=== PATIENT | male | born 1985 | race Caucasian/White ===

== ENCOUNTER 2017-09-03 23:44 | Observation (INO) ==
[2017-09-04] MEDS ORDERED: Haloperidol Lactate 5 MG/ML VIAL IVP ONE (02:27)
[2017-09-04] MEDS ORDERED: *HR* LORazepam 2 MG/ML VIAL IVP ONE (02:27)
--- NOTE | 2017-09-04 02:35 | Emergency Department Note ---
Disposition Clinical Impression: Finger fracture, left Qualifiers: Encounter type: initial encounter Finger: little finger Fracture type: open Phalanx: proximal Fracture alignment: displaced Qualified Code(s): S62.617B - Displaced fracture of proximal phalanx of left little finger, initial encounter for open fracture Disposition: Admitted As Inpatient Condition: Fair Upper Extremity HPI - General Chief Complaint: ED Extremity Injury, Upper Stated Complaint: "my pinky is falling off, I need sugery" Time Seen by Provider: 09/04/17 01:14 Source: patient Limitations: no limitations Nursing Notes Reviewed: Yes Vital Signs Reviewed: Yes - History of Present Illness HPI Narrative: 32-year-old male presents with the left pinky injury. Patient was smashed by heavy door in custodial on his left small finger the past Sunday (5 days ago). Patient was admitted to [facility] for hand surgery. Patient stated the surgery was postponed from to Sunday and to next Sunday (today). Patient left [facility] on Sunday. Patient came here today and requested amputation. Patient denied chills and fever. Denies pus drainage from wound. Patient is not on antibiotics. Injury Location: Left: fingers Onset (ago): day(s) (5) Other Injuries: none Handedness: left Place: other (custodial) Pain Severity: severe - Related Data Allergies Allergy/AdvReac Type Severity Reaction Status Date / Time No Known Allergies Allergy Verified 09/30/16 17:44 Constitutional: Denies: fever, chills, weakness, weight change Eyes: Denies: eye pain, eye discharge, vision change ENT ED: Denies: ear pain, throat pain, dental pain, hearing loss, epistaxis, congestion, dysphagia Cardiovascular: Denies: chest pain, palpitations, dyspnea on exertion, edema, syncope Respiratory: Denies: cough, dyspnea, wheezes, hemoptysis, stridor Gastrointestinal: Denies: abdominal pain, nausea, vomiting, diarrhea, constipation, hematemesis, melena, hematochezia Genitourinary: Denies: urgency, dysuria, frequency, hematuria Musculoskeletal: Reports: joint swelling (Left small finger swelling and pain), arthralgia. Denies: back pain, neck pain, myalgia Integumentary: Denies: rash, abrasion, lesions Neurological: Denies: headache, weakness, numbness, paresthesias, confusion, abnormal gait, vertigo Psychiatric: Denies: anxiety, depression, suicidal thoughts, homicidal thoughts , auditory hallucinations, visual hallucinations Endocrine: Denies: fatigue Hematological/Lymphatic: Denies: easy bleeding, easy bruising Allergic/Immunologic: Denies: facial swelling, urticaria Past Medical History - Past Medical History Medical history: Reports: hepatitis, thyroid disease - Social History Smoking Status: Current every day smoker Smokeless Tobacco Status: No Alcohol use: Reports: occasionally Drug use: Reports: methamphetamine Physical Exam - General Limitations: no limitations General appearance: alert, in no apparent distress - Head Head exam: atraumatic, normocephalic, normal inspection - Eye Eye exam: Present: normal appearance, PERRL, EOMI - ENT ENT exam: normal exam, normal oropharynx, mucous membranes moist - Neck Neck exam: Present: normal inspection, full ROM, trachea midline - Chest Chest inspection: Present: normal inspection, symmetric chest wall rise - Respiratory Respiratory exam: Present: normal lung sounds bilaterally - Cardiovascular Cardiovascular exam: Present: regular rate, normal rhythm, normal heart sounds - Abdominal Exam Abdominal exam: Present: soft, Non-Tender. Absent: tenderness, distention, guarding, rebound, rigidity - Expanded Upper Extremity Exam Shoulder exam: Present: normal inspection, full ROM. Absent: tenderness, swelling Arm exam: Present: normal inspection, full ROM. Absent: tenderness, swelling Elbow exam: Present: normal inspection, full ROM. Absent: tenderness, swelling Forearm/Wrist exam: Present: normal inspection, full ROM. Absent: tenderness, swelling Hand exam: Present: other (Left small finger swelling, tender to palpation, sutured laceration noted, no purulent drainage noted, capillary refill time normal in finger tip, no sensory change on finger tip) - Back Exam Back exam: Present: normal inspection, full ROM. Absent: tenderness - Neurological Exam Neurological exam: Present: alert, oriented X3 - Psychiatric Psychiatric exam: Present: normal affect, normal mood Course Vital Signs Temperature 98.8 F 09/03/17 23:49 Pulse Rate 97 09/03/17 23:49 Respiratory Rate 18 09/03/17 23:49 Blood Pressure 140/95 09/03/17 23:49 O2 Sat by Pulse Oximetry 96 09/03/17 23:49 Temperature 98.8 F 09/03/17 23:49 Pulse Rate 92 09/04/17 03:27 Respiratory Rate 18 09/04/17 03:27 Blood Pressure 136/90 09/04/17 03:27 O2 Sat by Pulse Oximetry 97 09/04/17 03:27 Oxygen Delivery Oxygen Delivery Room Air Extremity Injury, Upper - MDM Narrative Medical decision making narrative: 32-year-old male presents with left small finger injury. Patient had the injury in a custodial 5 days ago. Patient has fracture and laceration on left small finger. Per patient he is supposed to have a pin in small finger and some nerve and tendon repair surgery. Patient left [facility] by AMA. Patient is here today to request amputation. Physical exam: Left small finger swelling, tender to palpation, sutured laceration noted, no signs of infection, capillary refill time normal, no sensory change. Dr. Silva saw the patient and talked with Dr. Hay in the phone. Dr. Hay agrees to see the patient in the morning. Patient will be admitted to the hospital. Antibiotics started in the ER to prevent infection. 03:45am pt went to bathroom and injected some drugs through IV by himself without being witnessed. Pt seems drowsy after returning to room. One dose of Narcan is given. - Lab Data Lab results reviewed: Yes I reviewed the patient's lab results. Result diagrams: 09/04/17 03:45 09/04/17 03:45 - Radiology Data Radiology results reviewed: Yes I reviewed the patient's radiology results.
[2017-09-04] MEDS ORDERED: Naloxone 0.4 MG/ML INJ ONE (03:42)
[2017-09-04 04:01] LABS: Basophils % 0.6 %; Eosinophils # 0.1 K/mcL (0.0-0.6); Eosinophils % 1.8 %; Hematocrit 41.5 % (37.5-50.1); Hemoglobin 14.4 g/dL (12.9-16.9); Immature Granulocytes % 0.1 % (0-4); Lymphocytes # 2.7 K/mcL (0.6-4.6); Lymphocytes % 39.8 %; Mean Corpuscular HGB Conc 34.7 g/dL (31.6-35.5); Mean Corpuscular Hemoglobin 30.9 pg (28.0-33.3); Mean Corpuscular Volume 89.1 fL (83.0-100.0); Mean Platelet Volume 9.5 fL (9.4-12.4); Monocytes # 0.5 K/mcL (0.0-1.3); Neutrophils # 3.4 K/mcL (1.6-8.9); Platelet Count 162 K/mcL (140-400); Red Blood Count 4.66 M/mcL (4.19-5.50); Red Cell Distribution Width 12.5 % (11.5-14.5); Segmented Neutrophils % 50.7 %
[2017-09-04 04:07] LABS: INR 1.1; Prothrombin Time 12.4 Seconds (9.4-12.1)
[2017-09-04 04:22] LABS: Alanine Aminotransferase 22 Units/L (7-52); Albumin 4.3 g/dL (3.5-5.7); Albumin/Globulin Ratio 1.3 (1.1-2.2); Alkaline Phosphatase 59 Units/L (34-104); Aspartate Amino Transferase 24 Units/L (13-39); BUN/Creatinine Ratio 15 (6-26); Bilirubin,Total 1.1 mg/dL (0.3-1.0); Blood Urea Nitrogen 14 mg/dL (6-20); Calcium 9.4 mg/dL (8.6-10.3); Carbon Dioxide 24 mEq/L (23-29); Chloride 106 mEq/L (98-107); Globulin 3.3 g/dL (2.4-3.5); Glucose 94 mg/dL (70-105); Osmolality,Calculated 286 (280-300); Potassium 3.5 mEq/L (3.5-5.1); Sodium 138 mEq/L (136-145); Total Protein 7.6 g/dL (6.4-8.9); eGFR For African Americans > 60 (> 60); eGFR For Non-African Americans > 60 (> 60)
--- NOTE | 2017-09-04 05:46 | Orthopedic Consult Note ---
Date of Encounter: 09/04/17 Time of Encounter: 05:43 Assessment and Plan (1) Finger fracture, left Current Visit: Yes Status: Acute Open left small finger proximal phalanx fracture, date out. My recommendation is for operative debridement, irrigation, and pinning of the left small finger proximal phalanx. Continue Ancef for now. I am unable to obtain meaningful consent at this point and we will do so later when he is more awake. Nothing by mouth for now in preparation for surgery. Qualifiers: Encounter type: initial encounter Finger: little finger Fracture type: open Phalanx: proximal Fracture alignment: displaced Qualified Code(s): S62.617B - Displaced fracture of proximal phalanx of left little finger, initial encounter for open fracture History of Present Illness HPI: Mr. Esquivel is a 32 year old male admitted to the hospitalist after sustaining an injury to his left small finger. He was in senior living and smashed the left small finger and a heavy metal door. The patient is exceedingly drowsy and is only arousable moments at a time. He is unable to provide any history. The history is cleaned from the chart. Apparently the patient was transferred to [facility] on Sunday where his surgery was delayed twice and the patient left AGAINST MEDICAL ADVICE and presented to our emergency department. I am unable to obtain a neurologic history. I am unable to obtain any modifying factors. Past Med Surg Social Fam HX - Past Medical History Medical history: hepatitis, thyroid disease - Social History Smoking Status: Current every day smoker Smokeless Tobacco Status: No Alcohol use: occasionally Drug use: methamphetamine Medications and Allergies 3 Allergy/AdvReac Type Severity Reaction Status Date / Time No Known Allergies Allergy Verified 09/30/16 17:44 ROS unobtainable: due to mental status Physical Exam - Constitutional Vitals: Temp Pulse Resp BP Pulse Ox 98.8 F 74 18 95/63 96 09/03/17 23:49 09/04/17 05:15 09/04/17 03:27 09/04/17 05:15 09/04/17 05:15 CONSTITUTIONAL -Vitals reviewed -The patient is well developed, well nourished, well groomed PSYCHIATRIC -Significantly drowsy and only arousable for moments at a time and he falls right back to sleep. LEFT UPPER EXTREMITY Inspection shows a U-shaped laceration along the volar and radial aspect of the proximal portion of the small finger nearly circumferential with about a 2 cm skin bridge dorsally and ulnarly. It has been sutured previously and has no drainage redness or concern for infection. Mild deformity to the digit. I am unable to obtain meaningful neurologic exam given his mental status. Radial artery pulses 2+. The tip of the small finger is well-perfused with brisk capillary refill. Diagnostic Imaging: I did personally review and interpret x-rays of the left small finger which show a transverse displaced fracture of the proximal phalanx with shortening. Results - Labs Result Diagrams: 09/04/17 03:45 09/04/17 03:45 Labs: Abnormal lab results PT 12.4 Seconds (9.4-12.1) H 09/04/17 03:45 Total Bilirubin 1.1 mg/dL (0.3-1.0) H 09/04/17 03:45 H & H 09/04/17 Range/Units 03:45 Hgb 14.4 (12.9-16.9) g/dL Hct 41.5 (37.5-50.1) % All other labs normal. Consult Discharge Plan - Plan Referrals: NONE,PCP [Primary Care Provider] -
[2017-09-04] MEDS ORDERED: Acetaminophen 325 MG TABLET PO PRN ×2 (07:44→17:41)
[2017-09-04] MEDS ORDERED: Naloxone 0.4 MG/ML INJ IVP PRN ×2 (07:44→17:41)
[2017-09-04] MEDS ORDERED: 0.9 % Sodium Chloride 1,000 ML IVC SCH (07:45)
--- NOTE | 2017-09-04 07:54 | Internal Med History&Physical ---
Date of Encounter: 09/04/17 Time of Encounter: 07:49 Internal Medicine - H&P: HPI Chief complaint: Left 5th Digit Fracture Admitted From: Emergency Dept Plans for Post Hospital Care: Home History of present illness: Mr. Esquivel is a 32 year old male who presented to ED with left 5th digit pain. Patient is somnolent and difficult to arouse at this time. He is unable to provide any history. History is obtained from chart review of ED records. Patient presented to ED today with pain to left 5th digit. He had injury to finger this past Sunday, when he smashed finger in a door. He was admitted to [facility] for hand surgery, but he left AMA on Sunday. He came to ED here requesting amputation of digit. In the ED, he denied any fever, chills, chest pain, SOB, nausea, vomiting, abdominal pain, changes in bladder, or changes in bowel. Left hand x-ray showed an acute fracture of proximal 5th phalanx. Labwork was unremarkable. ED physician consulted orthopedic surgery, who will see patient in AM. Past Med Surg Social Fam HX - Past Medical History Source: unable to obtain (Patient is somnolent) Medical history: hepatitis, thyroid disease - Past Surgical History Surgical History: other (Unable to obtain due to patient somnolence) - Social History Smoking Status: Current every day smoker Smokeless Tobacco Status: No Alcohol use: occasionally Drug use: methamphetamine Additional social history: Unable to obtain due to patient somnolence - Additional Family History Additional family history: Unable to obtain due to patient somnolence Internal Medicine - H&P: Meds 3 Allergy/AdvReac Type Severity Reaction Status Date / Time No Known Allergies Allergy Verified 09/30/16 17:44 All Systems PM: A 10-system review of systems was performed and is negative for pertinent findings except as documented above in the HPI. - Constitutional Vitals: Temp Pulse Resp BP Pulse Ox 98.6 F 64 14 107/74 97 09/04/17 07:04 09/04/17 07:04 09/04/17 07:04 09/04/17 07:04 09/04/17 07:04 General appearance: Present: A&O X 0, no acute distress. Absent: answers questions appropriately Exam: Somnolent, arousable to sternal rub, but does not respond to questioning - Head Head exam: Present: atraumatic, normal inspection, normocephalic - Eye Eye exam: Present: EOMI, PERRL. Absent: conjunctival injection, scleral icterus - ENT ENT exam: Present: mucous membranes moist, normal external ear exam, normal oropharynx - Neck Neck exam general surgery: Present: supple, trachea midline. Absent: lymphadenopathy, tenderness, thyromegaly - Respiratory Respiratory exam: Present: CTAB. Absent: accessory muscle use, rales, rhonchi, wheezes Additional comments: Normal WOB - Cardiovascular Cardiovascular exam: Present: RRR, +S1, +S2. Absent: diastolic murmur, gallop, rubs, systolic murmur Additional comments: No BLE edema - GI/Abdominal GI/Abdominal exam: Present: normal bowel sounds, soft. Absent: distended, hepatomegaly, mass, splenomegaly, tenderness - Extremities Exam Additional comments: Left 5th digit with mild edema, moderate TTP, sutured laceration without erythema/drainage, normal capillary refill - Neurological Exam Neurological exam: Present: no focal deficits. Absent: alert, oriented X3 Additional comments: Unable to fully evaluate due to somnolence - Psychiatric Additional comments: Unable to evaluate due to patient somnolence - Skin Skin exam: Present: dry, warm. Absent: cyanosis, rash Internal Med - H&P Results - Labs CBC & Chem 7: 09/04/17 03:45 09/04/17 03:45 Labs: Short CBC 09/04/17 Range/Units 03:45 WBC 6.7 (4.3-11.1) K/mcL Hgb 14.4 (12.9-16.9) g/dL Hct 41.5 (37.5-50.1) % Plt Count 162 (140-400) K/mcL Neutrophils # 3.4 (1.6-8.9) K/mcL BMP 09/04/17 03:45 Sodium 138 Potassium 3.5 Chloride 106 Carbon Dioxide 24 BUN 14 Creatinine 0.93 Glucose 94 Calcium 9.4 Liver Function 09/04/17 Range/Units 03:45 Total Bilirubin 1.1 H (0.3-1.0) mg/dL AST 24 (13-39) Units/L ALT 22 (7-52) Units/L Alkaline Phosphatase 59 (34-104) Units/L Albumin 4.3 (3.5-5.7) g/dL - VTE Documentation of Mechanical Device: Intermittent pneumatic compression device - Assessment and plan (1) Finger fracture, left Current Visit: Yes Status: Acute Assessment and plan: Admit as inpatient. Orthopedic surgery consulted; appreciate input. NPO for possible surgery. IVF while NPO. Tylenol PRN pain. Continue ancef. Avoid sedating medications at this time due to somnolence. Recheck labwork in AM. Qualifiers: Encounter type: initial encounter Finger: little finger Fracture type: open Phalanx: proximal Fracture alignment: displaced Qualified Code(s): S62.617B - Displaced fracture of proximal phalanx of left little finger, initial encounter for open fracture (2) DVT prophylaxis Current Visit: Yes Status: Acute Assessment and plan: Low risk. Ambulate and up to chair when awake. Start SCDs. - Time Spent With Patient Total time spent is greater than 50% in coordination of care (as documented) at patient's floor/unit and/or counseling patient: less than 15 minutes
[2017-09-04 11:22] LABS: Amphetamine Screen,Urine Positive ng/mL (Cutoff=1000); Barbiturate Screen,Urine Negative ng/mL (Cutoff=200); Benzodiazepines Screen,Urine Negative ng/mL (Cutoff=200); Cannabinoid Screen,Urine Negative ng/mL (Cutoff = 50); Cocaine Screen,Urine Negative ng/mL (Cutoff= 300); Opiate Screen,Urine Positive ng/mL (Cutoff=300); Phencyclidine Screen,Urine Negative ng/mL (Cutoff=25)
--- NOTE | 2017-09-04 13:46 | Orthopedics Progress Note ---
Date of Encounter: 09/04/17 Time of Encounter: 13:44 - Assessment and Plan (1) Finger fracture, left Current Visit: Yes Status: Acute Open left small finger proximal phalanx fracture, date out. My recommendation is for operative debridement, irrigation, and pinning of the left small finger proximal phalanx. Continue Ancef for now. I am unable to obtain meaningful consent at this point and we will do so later when he is more awake. Nothing by mouth for now in preparation for surgery. Qualifiers: Encounter type: initial encounter Finger: little finger Fracture type: open Phalanx: proximal Fracture alignment: displaced Qualified Code(s): S62.617B - Displaced fracture of proximal phalanx of left little finger, initial encounter for open fracture Subjective Interval history: S: The patient is seen again at the bedside and is much more alert and oriented. He complains of isolated pain to the left small finger without any numbness or tingling or other associated signs or symptoms. O: Afebrile on the vital signs are stable The small finger is unchanged compared to this morning A: Left small finger proximal phalanx fracture, open P: My recommendation is for debridement and irrigation with reduction and pinning of the small finger metacarpal. The risks discussed included but were not limited to stiffness, bleeding, infection, blood clots, damage to neurovascular structures, tendons, ligaments, and bone. Also discussed was the risk of continued symptoms and possible need for further procedures. I did discuss the anesthesia risks including stroke, heart attack, and . I did discuss the reasonable, foreseeable postoperative course with the patient. He did wish to proceed and consent was obtained. Objective Vital signs: Intake and Output 09/03/17 09/04/17 09/04/17 23:59 07:59 15:59 Output Total 200 / 200 Balance -200 / -200 Output: Urine 200 / 200 - Labs CBC & BMP: 09/04/17 03:45 09/04/17 03:45 Labs: Abnormal lab results PT 12.4 Seconds (9.4-12.1) H 09/04/17 03:45 Total Bilirubin 1.1 mg/dL (0.3-1.0) H 09/04/17 03:45 Urine Opiates Screen Positive ng/mL ([id number]) H 09/04/17 10:40 Ur Amphetamines Screen Positive ng/mL ([id number]) H 09/04/17 10:40 - VTE Documentation of Mechanical Device: Intermittent pneumatic compression device Consult Discharge Plan - Plan Referrals: NONE,PCP [Primary Care Provider] -
[2017-09-04] MEDS ORDERED: Albuterol 2.5 MG/3 ML NEBULIZER ONE (14:57)
[2017-09-04] MEDS ORDERED: Famotidine 20 MG/2 ML VIAL IVP ONE ×2 (14:58→17:41)
[2017-09-04] MEDS ORDERED: Albuterol 2.5 MG/3 ML NEBULIZER IH ONE (14:58)
[2017-09-04] MEDS ORDERED: Acetaminophen IV 1,000 MG/100 ML INFUS..BTL IVPB ONE ×2 (14:59→17:41)
[2017-09-04] MEDS ORDERED: *HR* Propofol 200 MG/20 ML VIAL IVP ONE (15:00)
[2017-09-04] MEDS ORDERED: *HR* FentaNYL (PF) 100 MCG/2 ML VIAL ONE (15:00)
[2017-09-04] MEDS ORDERED: Lidocaine -MPF 2% 2 ML VIAL ONE (15:00)
[2017-09-04] MEDS ORDERED: Ketorolac 30 MG/ML VIAL ONE (15:00)
[2017-09-04] MEDS ORDERED: *HR* Midazolam HCl 2 MG/2 ML VIAL ONE (15:00)
[2017-09-04] MEDS ORDERED: Dexamethasone 4 MG/ML VIAL ONE (15:00)
[2017-09-04] MEDS ORDERED: Ondansetron 4 MG/2 ML VIAL ONE (15:00)
--- NOTE | 2017-09-04 15:02 | Anesthesia Evaluation PreOp ---
Date of Encounter: 09/04/17 Time of Encounter: 15:00 - Past History Planned Operation: Pinning Left Small Finger Cardiac History: Denies any Significant Hx Pulmonary History: Smoker DOPE SPRAYER History: Denies Any Significant HX Other Medical History: Denies Any Significant HX Anesthesia History: No Prior Anesthetic Complications Alcohol Use: occasionally Drug use: methamphetamine Medications and Allergies No Known Home Drugs 09/04/17 [History] 3 Allergy/AdvReac Type Severity Reaction Status Date / Time No Known Allergies Allergy Verified 09/30/16 17:44 - Meds/Allergy Pre-op Review Medications Reviewed: Yes Allergies Reviewed: Yes Beta Blockers on Current Med List: No Anesthesia Results - Labs 09/04/17 03:45 09/04/17 03:45 Anesthesia Exam O2 Sat Height 1.7 m Weight 72.575 kg O2 Sat by Pulse Oximetry 97 O2 Sat by Pulse Oximetry 96 O2 Sat by Pulse Oximetry 97 O2 Sat by Pulse Oximetry 96 O2 Sat by Pulse Oximetry 96 O2 Sat by Pulse Oximetry 96 O2 Sat by Pulse Oximetry 97 O2 Sat by Pulse Oximetry 96 Vital Signs Temp Pulse Resp BP Pulse Ox 98.8 F 97 18 140/95 96 09/03/17 23:49 09/03/17 23:49 09/03/17 23:49 09/03/17 23:49 09/03/17 23:49 Height: 5'7 Weight: 160 lbs NPO (# of Hours): MN Pain Scale: 0 - HEENT Pupil (Motor): Pupils equal, EOMI Mallampati: II Teeth: Normal Oral Opening: Greater than 3 - DOPE SPRAYER LOC: Oriented DOPE SPRAYER Motor: Normal RUE, Normal LUE, Normal RLE, Normal LLE, Normal Face DOPE SPRAYER Sensory: Normal: RUE, LUE, RLE, LLE, Face - Cardiac Rhythm: Regular Murmur: None JVD: No Carotid Bruit: No - Pulmonary Breath Sounds: bilateral Clear Respiratory Effort: Symmetrical Anesthesia Assess/Plan ASA Score: 2 Modified Denver Scale for Level of Consciousness: Cooperative, oriented, and tranquil Anesthetic Plan: General Monitoring Plan: Standard Monitors Recovery Plan: PACU (Discussed GA, agrees to proceed)
[2017-09-04] MEDS ORDERED: Bupivacaine/EPI 1:200k 0.5%PF 10 ML VIAL ONE (15:08)
[2017-09-04] MEDS ORDERED: Lidocaine/EPI 1:100k 1% 20 ML VIAL ONE (15:08)
[2017-09-04] MEDS ORDERED: Acetaminophen IV 1,000 MG/100 ML INFUS..BTL ONE (15:49)
[2017-09-04] MEDS ORDERED: Famotidine 20 MG/2 ML VIAL ONE (15:49)
[2017-09-04] MEDS ORDERED: *HR* Morphine 10 MG/ML VIAL ONE (16:20)
[2017-09-04] MEDS ORDERED: Albuterol 2.5 MG/3 ML NEBULIZER IH PRN (16:38)
[2017-09-04] MEDS ORDERED: *HR* Promethazine 25 MG/ML VIAL IVP PRN (16:38)
[2017-09-04] MEDS ORDERED: *HR* HYDROmorphone (PF) 1 MG/ML SYRINGE IVP PRN (16:38)
--- NOTE | 2017-09-04 16:49 | Orthopedic Operative Note ---
Date of procedure: 09/04/17 Procedure: OPERATIVE REPORT DATE OF PROCEDURE: 09/04/2017 SURGEON: Kirk Hay MD ENDOSCOPY NURSE(S): There were no assistants PREOPERATIVE DIAGNOSIS: Left small finger open proximal phalanx fracture POSTOPERATIVE DIAGNOSIS: Left small finger open proximal phalanx fracture PROCEDURE: Debridement and irrigation of the left small finger with open reduction and percutaneous pin fixation of the left small finger proximal phalanx ANESTHESIA: Gen. anesthesia PREOPERATIVE ANTIBIOTICS: 2 g of Ancef ESTIMATED BLOOD LOSS: 1 milliliters TOURNIQUET TIME: 38 minutes at 250 mmHg SPECIMENS: There were no specimens IMPLANTS: 0.045 K wire 1 LOCAL INJECTION: 0.5% bupivacaine with 1:200,000 epinephrine; 5 mL used in total PREOPERATIVE NOTE AND INDICATIONS: This patient is a 32-year-old male who comes in for evaluation of his left small finger. He is initially scheduled for fixation at [place] however the patient left AGAINST MEDICAL ADVICE and presented to our emergency department. Due to compliance issues he was admitted for fixation. The surgical plan was discussed with the patient. The risks, benefits, alternatives, and potential complications of this procedure were discussed with the patient including injury to veins, arteries, nerves, tendons, ligaments, and bone. Also discussed were the risks of infection, bleeding, pain, blood clots, the possible need for a blood transfusion, the possible need for further procedures, heart attack, stroke, and . Additional risks include malunion , nonunion, hardware failure, and pin tract infections. All of this was explained in simple terms, and the patient verbalized understanding and wished to proceed. Consent was given to proceed with surgery. PROCEDURE: The patient was seen in the preoperative holding area where the identify and the consent were confirmed. The left small finger was marked. Final questions were answered. The patient was brought back to the operating room and placed supine on the operating room table. A huddle was performed with the patient and all vital surgical team members confirming patient identity, the correct procedure, and the correct operative site. Gen. anesthesia was administered. The left upper extremity was prepped and draped in the usual sterile fashion. A surgical time out was performed immediately preceding the incision with all personnel in the operating room to confirm patient identity, the correct operative site and extremity, correct radiographic studies, availability of appropriate surgical equipment, and agreement on the planned procedure. The limb was exsanguinated and the tourniquet was inflated. The old stitches were taken out. The flap was pulled down. There is no gross contamination and no purulence or concern for infection. Both ends of the fracture were exposed. The wound was irrigated with 3 L of saline. The neurovascular bundles on both sides were identified and were found to be intact. The flexor tendons to the small finger were also intact. A 0.045 K wire was driven in retrograde fashion down the medullary canal of the proximal fragment and out the skin and then driven in antegrade fashion across into the distal fragment. After final irrigation the wound was closed loosely with interrupted 4-0 nylon stitches. The pin was bent and cut short. Final x-ray showed good position of the fracture and the hardware. A sterile dressing and MP splint were applied. The instrument, sponge, and needle counts were correct after wound closure. POST OPERATIVE PLAN: Weight Bearing: Avoid weightbearing through the left upper extremity. DVT Prophylaxis: Ambulation Activity: Avoid aggressive activities with the left upper extremity. Wound Care: Keep the dressing clean, dry, and intact. Perioperative antibiotic prophylaxis: 24 hours of Ancef Follow Up: One week for repeat x-ray and placement of an ulnar gutter cast. Follow up with me on postoperative week 3 for a repeat x-ray and consideration of pin removal. Was there an circulation assistant present: No Estimated blood loss (cc): 1
--- NOTE | 2017-09-04 17:10 | Anesthesia Evaluation Post Op ---
Date of Encounter: 09/04/17 Time of Encounter: 17:00 - Vital Signs Vital Signs: Vital Signs/O2 Sat/Glucose, Most Current Temp Pulse Resp BP Pulse Ox 09/04/17 17:00 98.7 F 80 14 104/68 100 09/04/17 16:50 75 13 105/56 98 09/04/17 16:40 75 12 107/61 96 09/04/17 16:30 97.0 F L 71 12 98/51 96 09/04/17 15:05 14 97 - Lungs Lungs: Clear Ascult./Percussion - Airway Airway: Non-obstructed - Cardiovascular Regular Rate - Mental Status Mental Status: Alert & Oriented, Answers Appropriately - Pain Pain Scale: 0 - Nausea Vomiting Nausea Vomiting: Not Present - Hydration Hydration: Tolerates oral liquids - Discharge PostOp Status: Transfer Patient to floor
[2017-09-04] MEDS ORDERED: *HR* OxyCODONE Immed Rel 5 MG TABLET PO PRN (17:41)
[2017-09-04] MEDS: 0.9 % Sodium Chloride 1,000 ML IVC SCH (18:00)
[2017-09-05] MEDS: 0.9 % Sodium Chloride 1,000 ML IVC SCH (01:53)
[2017-09-05 05:23] LABS: Hematocrit 41.4 % (37.5-50.1); Hemoglobin 14.2 g/dL (12.9-16.9); Immature Granulocytes % 0.2 % (0-4); Lymphocytes # 1.3 K/mcL (0.6-4.6); Lymphocytes % 19.8 %; Mean Corpuscular HGB Conc 34.3 g/dL (31.6-35.5); Mean Corpuscular Hemoglobin 31.2 pg (28.0-33.3); Mean Platelet Volume 10.1 fL (9.4-12.4); Monocytes # 0.1 K/mcL (0.0-1.3); Neutrophils # 5.1 K/mcL (1.6-8.9); Platelet Count 161 K/mcL (140-400); Red Blood Count 4.55 M/mcL (4.19-5.50); Red Cell Distribution Width 12.1 % (11.5-14.5)
[2017-09-05 05:45] LABS: BUN/Creatinine Ratio 21 (6-26); Blood Urea Nitrogen 16 mg/dL (6-20); Calcium 8.6 mg/dL (8.6-10.3); Carbon Dioxide 22 mEq/L (23-29); Chloride 107 mEq/L (98-107); Glucose 101 mg/dL (70-105); Osmolality,Calculated 289 (280-300); Potassium 4.1 mEq/L (3.5-5.1); Sodium 139 mEq/L (136-145); eGFR For African Americans > 60 (> 60); eGFR For Non-African Americans > 60 (> 60)
--- NOTE | 2017-09-05 07:39 | Orthopedics Progress Note ---
Date of Encounter: 09/05/17 Time of Encounter: 07:36 - Assessment and Plan (1) Finger fracture, left Current Visit: Yes Status: Acute Qualifiers: Encounter type: initial encounter Finger: little finger Fracture type: open Phalanx: proximal Fracture alignment: displaced Qualified Code(s): S62.617B - Displaced fracture of proximal phalanx of left little finger, initial encounter for open fracture Subjective Interval history: S: Resting in bed comfortably. Pain well controlled. O: Afebrile and vital signs are stable Left upper extremity is in a forearm-based MP splint Fingertips exposed are sensate and well-perfused. A: Post irrigation and debridement of the left small finger with pinning of the proximal phalanx P: He will receive his last dose of Ancef this morning and at that point he is orthopedically stable for discharge. I instructed the patient to keep the splint and dressings in place. He can take off the sling if he wants. Follow-up in the office in 1 week for a wound evaluation and consideration for stitch removal. Objective Vital signs: Vital Signs Temp Pulse Resp BP Pulse Ox 09/05/17 03:19 97.5 F L 82 16 116/65 95 09/04/17 22:29 97.7 F 74 16 100/57 95 09/04/17 18:15 65 14 108/68 96 09/04/17 17:45 61 15 114/69 95 09/04/17 17:15 58 14 112/71 95 09/04/17 17:10 98.7 F 64 15 113/75 94 09/04/17 17:00 98.7 F 80 14 104/68 100 09/04/17 16:50 75 13 105/56 98 09/04/17 16:40 75 12 107/61 96 09/04/17 16:30 97.0 F L 71 12 98/51 96 09/04/17 15:05 14 97 Intake and Output 09/04/17 09/04/17 09/05/17 15:59 23:59 07:59 Intake Total 100 / 100 1000 / 1000 Output Total 200 / 200 1 / 1 Balance -100 / -100 -1 / -1 1000 / 1000 Intake: IV Fluids 100 / 100 1000 / 1000 0.9 % Sodium Chloride 1,000 ML 1000 / 1000 @ 75 mls/hr IVC .[id number] [facility] Rx #:[id number] Ancef 2,000 MG In 0.9 % Sodium 100 / 100 Chloride 100 ML @ 200 mls/hr IVPB Q8HR [facility] Rx#:[id number] Output: Urine 200 / 200 Estimated Blood Loss Other: # Voids 1 Weight 73.4 kg Patient Weight 09/05/17 23:59 Weight 73.4 kg - Labs CBC & BMP: 09/05/17 04:05 09/05/17 04:05 Labs: Abnormal lab results PT 12.4 Seconds (9.4-12.1) H 09/04/17 03:45 Carbon Dioxide 22 mEq/L (23-29) L 09/05/17 04:05 Total Bilirubin 1.1 mg/dL (0.3-1.0) H 09/04/17 03:45 Urine Opiates Screen Positive ng/mL (Hnpvik=966) H 09/04/17 10:40 Ur Amphetamines Screen Positive ng/mL (Deqriw=2419) H 09/04/17 10:40 - VTE Documentation of Mechanical Device: Intermittent pneumatic compression device Consult Discharge Plan - Plan Referrals: NONE,PCP [Primary Care Provider] -
[2017-09-05 08:02] VITALS: BP 104/64
--- NOTE | 2017-09-05 08:37 | Discharge Summary ---
- NOTES TO OUTPATIENT PROVIDER Notes to Outpatient Provider: Follow up with orthopedic surgery in 1 week as directed. Date of Encounter: 09/05/17 Time of Encounter: 08:34 - Discharge Diagnosis (1) Finger fracture, left Priority: Primary Status: Acute Qualifiers: Encounter type: initial encounter Finger: little finger Fracture type: open Phalanx: proximal Fracture alignment: displaced Qualified Code(s): S62.617B - Displaced fracture of proximal phalanx of left little finger, initial encounter for open fracture (2) DVT prophylaxis Priority: Secondary Status: Acute Hospital course: Mr. Esquivel is a 32 year old male admitted for open left 5th digit proximal phalanx fracture. He was admitted for observation. Orthopedic surgery was consulted. They performed operative debridement, irrigation, and pinning of left 5th digit proximal phalanx. He received ancef perioperatively, last dose on the morning of discharge. He will follow up with orthopedic surgery as directed in 1 week after discharge. He will be discharged with splint and dressings on LUE. Patient has met maximum benefit of this hospitalization and will be discharged home in stable condition. Discharge discussed with: patient, nurse - Time Spent with Patient Total time spent providing and/or coordinating discharge services: Less than 30 minutes - Discharge Medications Home Medications: Acetaminophen [Tylenol] 650 mg PO Q6HR PRN tablet 09/05/17 [Rx] Allergies/Adverse Reactions: 3 Allergy/AdvReac Type Severity Reaction Status Date / Time No Known Allergies Allergy Verified 09/30/16 17:44 Date of admission: 09/04/17 03:01 Primary care physician: PCP NONE Consults: 09/04/17 07:46 Consult to Physician [CONS] Routine Consulting Provider: Kirk Hay Reason for Consult: Left 5th Digit Fracture Call Completed: Yes 09/04/17 07:47 Consult to Chief Ophthalmic Technician [CONS] Routine Reason for SW Consult: Discharge Planning Discharging clinician: Hiro Poe Anticipated date of discharge: 09/05/17 - Constitutional Vitals: Temp Pulse Resp BP Pulse Ox 98.2 F 64 15 104/64 93 09/05/17 07:58 09/05/17 07:58 09/05/17 07:58 09/05/17 07:58 09/05/17 07:58 General appearance: Present: cooperative, A&O X 3, no acute distress, answers questions appropriately - Respiratory Respiratory exam: Present: CTAB. Absent: accessory muscle use, rales, rhonchi, wheezes Additional comments: Normal WOB - Cardiovascular Cardiovascular exam: Present: RRR, +S1, +S2. Absent: diastolic murmur, gallop, rubs, systolic murmur Additional comments: No BLE edema - GI/Abdominal GI/Abdominal exam: Present: normal bowel sounds, soft. Absent: distended, hepatomegaly, mass, splenomegaly, tenderness - Extremities Exam Additional comments: LUE in bandaging, good capillary refill of LUE digits - Psychiatric Psychiatric exam: Present: normal affect, normal mood. Absent: agitated, anxious, depressed - Skin Skin exam: Present: dry, intact, warm. Absent: cyanosis, rash - Patient Status Disposition: Home, Self-Care Condition: Good Functional capacity at discharge: independent ambulation Overall status at discharge: patient is progressing back to baseline - Discharge Instructions Follow Up With: NONE,PCP [Primary Care Provider] - Kirk Hay MD [Partnered Physician] - 09/13/17 10:10 am Additional Instructions: Follow up with orthopedic surgery in 1 week as directed. - Diet and Activity Activity: resume usual activities as tolerated Diet: advance to your usual diet - VTE Documentation of Mechanical Device: Intermittent pneumatic compression device
== END 2017-09-05 10:18 | disposition home or self-care (01) ==
LOC: 3BNU 23:44 → EMEROO 23:44 → 3BNU 09-04 04:20
PROVIDERS: ADMIT Family Medicine; ATTEND Internal Medicine Nephrology